=== PATIENT | male | born 1955 | race Native Hawaiian/Other Pacific Islander ===

== ENCOUNTER 2018-11-12 09:15 | Outpatient (CLI) | payer BC ==
[~2018-11-12 09:15] MED LIST: DIAZEPAM10 MG PO; LEXAPRO20 MG PO; TRILEPTAL300 MG PO
== END 2018-11-12 19:16 | disposition home or self-care (01) ==
LOC: CT 09:15
DX: R14.0 Abdominal distension (gaseous) (principal)
CPT/HCPCS: 82565; 84520; Q9963

== ENCOUNTER 2022-04-10 08:46 | Outpatient (CLI) | payer OTHER | END 2022-04-10 18:56 | disposition home or self-care (01) | LOC: LAB 08:46 | PROVIDERS: ATTEND Nurse Practitioner Family | DX: F10.10 Alcohol abuse, uncomplicated (principal); R41.0 Disorientation, unspecified | CPT/HCPCS: 82140 ==